=== PATIENT | female | born 2000 | race Caucasian/White ===

== ENCOUNTER 2022-02-17 18:29 | Emergency (ER) | payer OTHER, MEDICAID ==
[~2022-02-17] VITALS: Ht 167.6 cm; Wt 86.4 kg
[2022-02-17 21:32] VITALS: BP 119/88
== END 2022-02-17 21:32 | disposition home or self-care (01) ==
LOC: ED 18:29
DX: S93.401A Sprain of unspecified ligament of right ankle, initial encounter (principal); W10.9XXA Fall (on) (from) unspecified stairs and steps, initial encounter; Y92.009 Unspecified place in unspecified non-institutional (private) residence as the place of occurrence of the external cause
CPT/HCPCS: L4386